=== PATIENT | female | born 1980 | race Caucasian/White ===

== ENCOUNTER 2023-04-28 06:26 | Day surgery (SDC) | payer BC ==
[~2023-04-28 06:26] MED LIST: Lactated Ringers 1,000 ML IV SCH
[2023-04-28] MEDS ORDERED: Naloxone 0.4 MG/ML SDV IVPUSH PRN (07:01)
[2023-04-28] MEDS ORDERED: Morphine 2 MG/ML SYRINGE IVPUSH PRN (07:01)
[2023-04-28] MEDS ORDERED: fentaNYL 50 MCG/ML SDV IVPUSH PRN (07:01)
[2023-04-28] MEDS ORDERED: Metoclopramide 10 MG/2 ML SDV IVPUSH PRN (07:01)
[2023-04-28] MEDS ORDERED: Albuterol 0.083% 2.5 MG/3 ML Neb Soln NEB PRN (07:01)
[2023-04-28] MEDS ORDERED: Ondansetron 4 MG/2 ML SDV IVPUSH PRN ×2 (07:01→18:28)
[2023-04-28] MEDS ORDERED: HYDROmorphone 1 MG/ML Syringe IVPUSH PRN (07:01)
[2023-04-28] MEDS ORDERED: droPERidol 5 MG/2 ML SDV IVPUSH PRN (07:01)
[2023-04-28 07:03] LABS: HEMATOCRIT 42.1 % (36.0-46.0); HEMOGLOBIN 14.2 g/dL (12.0-16.0); MEAN CORPUSCULAR HGB CONC 33.7 g/dL (31.0-37.0); MEAN CORPUSCULAR VOLUME 94.8 fL (80.0-98.0); MEAN PLATELET VOLUME 8.6 fL (7.40-12.00); RED BLOOD CELL COUNT 4.44 M/uL (4.30-5.90); WHITE BLOOD CELL COUNT,WBC 8.83 K/uL (4.0-11.0)
[2023-04-28] MEDS ORDERED: Propofol 200 MG/20 ML SDV ONE ×4 (07:22→10:01)
[2023-04-28] MEDS ORDERED: Dexmedetomidine 200 MCG/2 ML SDV ONE (07:23)
[2023-04-28] MEDS ORDERED: Ondansetron 4 MG/2 ML SDV ONE (07:23)
[2023-04-28] MEDS ORDERED: Dexamethasone 4 MG/ML 5 ML MDV ONE (07:23)
[2023-04-28] MEDS ORDERED: Lidocaine 2% 5 ML SDV ONE (07:23)
[2023-04-28] MEDS ORDERED: Rocuronium Bromide 50 MG/5 ML Syringe ONE (07:23)
[2023-04-28] MEDS ORDERED: Water For Injection, Sterile 20 ML ONE (07:23)
[2023-04-28] MEDS ORDERED: Ketamine 500 mg/10 ML MDV ONE (07:24)
[2023-04-28] MEDS ORDERED: fentaNYL 100 MCG/2 ML SDV ONE ×2 (07:24→08:32)
[2023-04-28 07:28] LABS: ALBUMIN 3.6 g/dL (3.4-5.0); BILIRUBIN TOTAL 0.6 mg/dL (0.2-1.0); CALCIUM 8.6 mg/dL (8.5-10.1); CREATININE 0.8 mg/dL (0.6-1.0); EST CRCL DRUG DOSING (CG) 82.43 mL/min; POTASSIUM,K 4.4 mmol/L (3.5-5.1); PROTEIN TOTAL,TP 7.2 g/dL (6.4-8.2)
[2023-04-28] MEDS ORDERED: ceFAZolin 2 GM in Sodium Chloride 0.9% 50 ML IV ONE (07:33)
[2023-04-28] MEDS ORDERED: Fluorescein 5 ML Vial ONE (08:07)
[2023-04-28] MEDS ORDERED: Magnesium Sulfate (4.06 MEQ/ML) 5 GM/10 ML SDV ONE (08:15)
[2023-04-28] MEDS ORDERED: ceFAZolin 2 GM Vial ONE (08:17)
[2023-04-28] MEDS ORDERED: Furosemide 40 MG/4 ML VIAL ONE (09:11)
[2023-04-28] MEDS ORDERED: Sugammadex Sodium 200 MG/2 ML VIAL ONE (09:20)
[2023-04-28] MEDS ORDERED: Ketorolac 30 MG/ML SDV ONE (09:20)
[2023-04-28] MEDS ORDERED: Lidocaine 1% with EPINEPHrine 1:100,000 20 ML MDV ONE (09:22)
[2023-04-28] MEDS ORDERED: Acetaminophen/oxyCODONE 325-5 MG Tab PO PRN ×2 (10:44→18:28)
[2023-04-28] MEDS ORDERED: Ketorolac 30 MG/ML SDV IVPUSH PRN (16:47)
[2023-04-28] MEDS ORDERED: Promethazine 25 MG/ML SDV IM PRN (18:28)
[2023-04-28] MEDS ORDERED: Morphine 4 MG/ML Syringe IVPUSH PRN (18:28)
[2023-04-28] MEDS: Acetaminophen/oxyCODONE 325-5 MG Tab PO PRN (21:15)
[2023-04-29] MEDS: Acetaminophen/oxyCODONE 325-5 MG Tab PO PRN ×2 (04:53→08:56)
[2023-04-29 06:02] LABS: EOSINOPHILS PERCENT AUTO 0.1 % (0.0-7.0); HEMATOCRIT 31.5 % (36.0-46.0); HEMOGLOBIN 10.3 g/dL (12.0-16.0); LYMPHOCYTES ABSOLUTE AUTO 2.3 K/uL (0.6-2.4); LYMPHOCYTES PERCENT AUTO 19.7 % (16.0-40.0); MEAN CORPUSCULAR HEMOGLOBIN 31.3 pg (27.0-32.0); MEAN CORPUSCULAR HGB CONC 32.7 g/dL (31.0-37.0); MEAN CORPUSCULAR VOLUME 95.7 fL (80.0-98.0); MONOCYTES ABSOLUTE AUTO 0.9 K/uL (0.0-0.8); MONOCYTES PERCENT AUTO 7.5 % (0.0-15.0); NEUTROPHILS ABSOLUTE AUTO 8.5 K/uL (1.4-5.7); NEUTROPHILS PERCENT AUTO 72.7 % (48.0-80.0); NRBC ABSOLUTE 0 K/uL; PLATELET COUNT,PLT 278 K/uL (150-400); RED BLOOD CELL COUNT 3.29 M/uL (4.30-5.90); WHITE BLOOD CELL COUNT,WBC 11.64 K/uL (4.0-11.0)
[2023-04-29 06:26] LABS: ALBUMIN 2.8 g/dL (3.4-5.0); BILIRUBIN TOTAL 0.5 mg/dL (0.2-1.0); CALCIUM 8.1 mg/dL (8.5-10.1); CREATININE 0.8 mg/dL (0.6-1.0); EST CRCL DRUG DOSING (CG) 82.43 mL/min; POTASSIUM,K 4.2 mmol/L (3.5-5.1); PROTEIN TOTAL,TP 6.1 g/dL (6.4-8.2)
[2023-04-29 06:28] LABS: A/G RATIO 0.9 (0.9-1.6)
== END 2023-04-29 11:00 | disposition home or self-care (01) ==
LOC: MW.SDS 06:26 → MW.MS 11:37 → MW.SDS 04-29 11:00
PROVIDERS: ATTEND Obstetrics & Gynecology
DX: N80.03 Adenomyosis of the uterus (principal); N39.3 Stress incontinence (female) (male); G43.909 Migraine, unspecified, not intractable, without status migrainosus; Z79.899 Other long term (current) drug therapy; Z88.0 Allergy status to penicillin
CPT/HCPCS: 36415; 57288; 58550; 80053; 81025; 85025; 85027; 86850; 86900; 86901; A9270; C1771; J0131; J0690; J1100; J1170; J1885; J1940; J2405; J2704; J3010; J3475; J3490; J7120; 00944

== ENCOUNTER 2023-11-23 05:49 | Emergency (ER) | payer BC ==
[2023-11-23] MEDS ORDERED: Ketorolac 30 MG/ML SDV IVPUSH ONE (06:08)
[2023-11-23 06:24] LABS: BASOPHILS ABSOLUTE AUTO 0.05 K/uL (0.00-0.20); BASOPHILS PERCENT AUTO 0.7 % (0.0-1.0); EOSINOPHILS ABSOLUTE AUTO 0.23 K/uL (0.00-0.45); EOSINOPHILS PERCENT AUTO 3.2 % (0.0-6.0); HEMATOCRIT 40.8 % (37.0-47.0); HEMOGLOBIN 13.8 g/dL (12.0-16.0); IMMATURE GRAN ABSOLUTE AUTO 0.01 K/uL (0.00-0.05); IMMATURE GRAN PERCENT AUTO 0.1 % (0.0-0.4); LYMPHOCYTES ABSOLUTE AUTO 3.01 K/uL (1.00-4.80); LYMPHOCYTES PERCENT AUTO 41.5 % (24.0-44.0); MEAN CORPUSCULAR HEMOGLOBIN 31.4 pg (28.0-32.0); MEAN CORPUSCULAR HGB CONC 33.8 g/dL (32.0-36.0); MEAN CORPUSCULAR VOLUME 92.9 fL (83.0-99.0); MEAN PLATELET VOLUME 8.4 fL (9.4-12.3); MONOCYTES ABSOLUTE AUTO 0.46 K/uL (0.00-0.80); MONOCYTES PERCENT AUTO 6.3 % (0.0-8.0); NEUTROPHILS PERCENT AUTO 48.2 % (41.0-71.0); PLATELET COUNT,PLT 326 K/uL (150-400); RED BLOOD CELL COUNT 4.39 M/uL (4.10-5.30); WHITE BLOOD CELL COUNT,WBC 7.26 K/uL (3.9-11.3)
[2023-11-23] MEDS ORDERED: Iopamidol 755 MG/ML 500 ML Multipack Bottle IVPUSH ONE (06:31)
[2023-11-23 07:00] LABS: APPEARANCE,URINE SLT CLOUDY; BILIRUBIN,URINE NEGATIVE (NEGATIVE); COLOR,URINE YELLOW; GLUCOSE,URINE NEGATIVE (NEGATIVE); KETONES,URINE NEGATIVE (NEGATIVE); LEUKOCYTE ESTERASE,URINE NEGATIVE (NEGATIVE); NITRITE,URINE NEGATIVE (NEGATIVE); OCCULT BLOOD,URINE TRACE-INTACT (NEGATIVE); PROTEIN,URINE NEGATIVE (NEGATIVE); UROBILINOGEN,URINE 0.2 EU/dL (<2.0)
[2023-11-23 07:03] LABS: A/G RATIO 0.9 (0.9-1.6); ALBUMIN 3.5 g/dL (3.4-5.0); BILIRUBIN TOTAL 0.4 mg/dL (0.2-1.0); CARBON DIOXIDE,CO2 28.6 mmol/L (21.0-32.0); CREATININE 0.9 mg/dL (0.6-1.0); EST CRCL DRUG DOSING (CG) 70.32 mL/min; POTASSIUM,K 3.8 mmol/L (3.5-5.1); PROTEIN TOTAL,TP 7.4 g/dL (6.4-8.2)
[2023-11-23 07:18] LABS: BACTERIA,URINE 2+ (NEGATIVE); EPITHELIAL CELLS,URINE FEW (NONE-FEW); RBC,URINE NONE SEEN (0-2/HPF); WBC,URINE 0-1 (0-5/HPF)
[2023-11-23 07:19] LABS: MUCUS,URINE LIGHT (NONE-MOD)
== END 2023-11-23 08:07 | disposition home or self-care (01) ==
LOC: MW.ED 05:49
DX: N39.0 Urinary tract infection, site not specified (principal); E66.9 Obesity, unspecified; Z68.33 Body mass index [BMI] 33.0-33.9, adult
CPT/HCPCS: 36415; 74177; 80053; 81001; 85025; 96374; 99284; J1885; Q9967